=== PATIENT | male | born 1940 | race Caucasian/White ===

== ENCOUNTER → 2016-12-01 | Day surgery (SDC) | payer MEDICARE, OTHER ==
[~2016-12-01] MED LIST: ALTACE; ALTACE10 M2 PO; ALTACE10 MG PO; APRESOLINE PO; ASPIR-TRIN325 MG PO; ASPIRIN PO; ATIVAN PO; BAYER ASPIRIN325 M1 PO; BUPROPION XL300 MG PO; CARAFATE1 G PO; CARVEDILOL6.25 MG PO; COREG PO; COREG3.125 MG PO; COREG6.25 MG PO; CYMBALTA PO; EC-NAPROSYN500 MG PO; EFFIENT10 MG PO; ELIQUIS2.5 MG PO; FENOFIBRATE145 M1 PO; FISH OIL 1,0001 CAP PO; FISH OIL 1,2001 CAP; FISH OIL 1,2001 CAP PO; FISH OIL 1,2001 EAC2 PO; FISH OIL300 MG PO; FLOMAX0.4 M1 PO; GABAPENTIN600 MG PO; HYDRALAZINE HCL10 MG PO; HYDRALAZINE HCL25 MG PO; HYDRALAZINE HCL50 MG PO; IBUPROFEN200 M1; IMDUR-ER60 M1; IMDUR-ER60 M1 PO; IMDUR-ER60 M3 PO; IMDUR-ER60 MG PO; ISORDIL PO; ISOSORBIDE; ISOSORBIDE DINI30 MG PO; ISOSORBIDE MONO60 M1 PO; K-DUR20 ME1 PO; KCL PO; KLOR-CON PO; LASIX PO; LEVOXYL; LEVOXYL125 MCG PO; LEXAPRO PO; LIPITOR PO; LIPITOR40 MG; LIPITOR40 MG PO; NEURONTIN PO; NEURONTIN300 MG PO; NEURONTIN600 MG; NEURONTIN600 MG PO; NEXIUM PO; NITROGLYGERIN0.4 MG SL; NITROSTAT0.4 MG PO; NITROSTAT0.4 MG SL; NORVASC; NORVASC10 MG PO; OMEGA 3-6-9 11200 MG PO; OMEPRAZOLE40 M1 PO; ONGLYZA2.5 MG PO; PANTOPRAZOLE SO40 MG PO; PLAVIX PO; POTASSIUM CHLO20 ME1 PO; PRESTIQ PO; PRISTIQ50 MG PO; PROTONIX PO; PROZAC; RANEXA1000 MG PO; RANEXA500 MG PO; SEROQUEL; SEROQUEL PO; SYNTHROID PO; SYNTHROID125 PO; TRADJENTA5 MG PO; TRAMADOL HCL50 M2 PO; TRICOR PO; VIT E PO; VITAMIN E1000 UNI2 PO; WELLBUTRIN PO; XARELTO10 MG PO; ZANAFLEX PO; [UNRECOGNIZED DRUG - OTHER]; [UNRECOGNIZED DRUG - OTHER]
--- NOTE | ~2016-12-01 | OR ---
Unit #: [id number] #: [id number] Patient: DALIA VICTORIA [id number] [address] [address] [id number] O MR#: [id number] NAME: DALIA VICTORIA ROOM: Date of Procedure: 12/01/2016 Admission Date: 12/01/2016 Surgeon: Mike Rivera M.D. : 1940 Attending Physician: Mike Rivera M.D. OPERATIVE REPORT REFERRING PHYSICIAN Primary Care. SERVICES PROVIDED 1. Therapeutic cervical epidural steroid injection. 2. Fluoroscopy of the cervical spine. PREOPERATIVE DIAGNOSES 1. Degenerative disk disease, C5-C6. 2. Coronary artery disease, status post coronary artery bypass grafting, status post permanent pacemaker and automatic implantable cardioverter-defibrillator implant, currently off Xarelto. POSTOPERATIVE DIAGNOSES 1. Degenerative disk disease, C5-C6. 2. Coronary artery disease, status post coronary artery bypass grafting, status post permanent pacemaker and automatic implantable cardioverter-defibrillator implant, currently off Xarelto. PROCEDURE PERFORMED Caudal epidural steroid injection using fluoroscopy. FOLLOW-UP/REVIEW OF SYSTEMS/PHYSICAL EXAM Mr. Victoria has persistent cervical radiculopathy. He has had a good response to cervical epidural intervention with significant pain relief and improvement in his functionality and quality of life. He has no medical contraindications to the procedure that was performed as follows with his consent. INDICATIONS/COMMENTS AND CONSENTS/STATEMENT OF MEDICAL NECESSITY The patient's current medications, allergies and vital signs are documented in the nursing assessment. The risks and benefits of the intervention(s) were discussed with the patient in detail including but not limited to infection, bleeding, meningitis, steroid induced side-effects, nerve damage, paralysis, spinal headaches, neuritis, persistent or worsening pain. The patient wishes to proceed. A separate pain assessment is also in the chart. I have reviewed all of this and have reviewed this with the patient. A current History and Physical is also attached. DESCRIPTION OF PROCEDURE(S) 1. Monitoring and positioning: After appropriate discussions it was Unit #: [id number] #: [id number] Patient: DALIA VICTORIA decided to perform the procedure under local anesthesia without supplemental intravenous sedation. Vital signs were monitored in pre, intra and post-procedure phase. Monitoring included EKG, non-invasive BP, pulse oximetry, and temperature. These are documented and were stable. Appropriate supports and restraints were used. 2. Sedation: None. 3. Caudal epidural injection/fluoroscopy: The patient was placed in the sitting position. Positional supports were used. Fluoroscopy of the lumbar spine was performed using a caudal angle. Sterile prep and drape with carried out with ChloraPrep. The approximate location of the sacral hiatus was determined by palpating the sacral cornu. Local anesthesia was with infiltrated with 3 mL of preservative-free 1% lidocaine. Once anesthesia was established, a 22-gauge Tuohy epidural needle was inserted into the C5-C6 level through the sacrococcygeal ligament, epidurally, into the caudal spinal canal, using loss of resistance to saline technique, and with fluoroscopic guidance. Needle placement tested negative for subarachnoid and intravascular placement. An intra-operative epidurogram was now performed. Intra-operative epidurogram: 1 mL (s) of Isovue-M300 was injected through the epidural needle under continuous fluoroscopy. The dye was seen to spread to C5 in the cephalad direction, and to the C6 in the caudal direction. The spread of the dye was uniform and bilateral. 1 mL of preservative-free normal saline was used to irrigate the dye off the epidural space. There was no intravascular or intrathecal spread of contrast. A cervical epidural steroid injection was now performed using a total of 3 mL of solution containing 0.7% lidocaine and 80 mg of Depo-Medrol. Fluoroscopic imaging confirmed spread of medication. The needle was then removed intact. The skin was washed off. Prep solution and dressings were applied at the injection site. The patient tolerated the procedure well. The patient was then observed in the recovery area for 30 minutes. RESULTS The patient had a consistent block with the dose of local anesthetic used. Pain relief was satisfactory. There were no complications or side effects. DISCHARGE CONDITION 1. Patient was discharged in satisfactory condition accompanied by a family member. 2. Post-procedure instructions were given. PLAN(S) Patient was advised to return to the clinic in 2 months for re-assessment and office visit. I thank the patient's referring physician for the opportunity to participate in the care of this patient. Please do not hesitate to call for any questions regarding this patient's pain management. Dictated by... Ronnie Carrillo/luis f TD: 12/01/2016 09:55 Unit #: [id number] #: [id number] Patient: DALIA VICTORIA JOB #: [id number] OPERATIVE REPORT X Mike Rivera MD PROCEDURE OPERATIVE NOTE
== END | disposition home or self-care (01) ==
LOC: CCSC 08:38
PROVIDERS: Anesthesiology
PROC: 3E0R3BZ Introduction of Anesthetic Agent into Spinal Canal, Percutaneous Approach (ICD-10-PCS; 2016-12-01)
PROC: 3E0R33Z Introduction of Anti-inflammatory into Spinal Canal, Percutaneous Approach (ICD-10-PCS; principal; 2016-12-01 09:45)
DX: M50.322 Other cervical disc degeneration at C5-C6 level (principal); M47.812 Spondylosis without myelopathy or radiculopathy, cervical region; M12.88 Other specific arthropathies, not elsewhere classified, other specified site; I25.10 Atherosclerotic heart disease of native coronary artery without angina pectoris; Z95.1 Presence of aortocoronary bypass graft; Z95.810 Presence of automatic (implantable) cardiac defibrillator; K21.9 Gastro-esophageal reflux disease without esophagitis; E03.9 Hypothyroidism, unspecified; Z87.440 Personal history of urinary (tract) infections; Z98.890 Other specified postprocedural states; Z79.899 Other long term (current) drug therapy; Z88.5 Allergy status to narcotic agent; Z88.6 Allergy status to analgesic agent; Z88.8 Allergy status to other drugs, medicaments and biological substances
CPT/HCPCS: J1040; J2250; J3010

== ENCOUNTER 2017-03-19 13:19 | Observation (INO) | payer MEDICARE, OTHER ==
--- NOTE | ~2017-03-19 | EKG ---
PATIENT: DALIA GIBSON UNIT #: [id number] Ventricular Rate: 65 BPM Atrial Rate: 65 BPM P-R Interval: 296 ms QRS Duration: 194 ms Q-T Interval: 498 ms QTC Calculation(Bezet): 517 ms Calculated R [place]: -67 degrees Calculated T [place]: 93 degrees Diagnosis Line: Electronic ventricular pacemaker Diagnosis Line: Sinus rhythm with 1st degree A-V block Diagnosis Line: Left axis deviation Diagnosis Line: Right bundle branch block Diagnosis Line: Septal infarct , age undetermined Diagnosis Line: T wave abnormality, consider lateral ischemia Diagnosis Line: Abnormal ECG Diagnosis Line: When compared with ECG of 05-JUN-2016 15:36, Diagnosis Line: No significant change was found Diagnosis Line: Confirmed by FADI BRADY MD ([id number]) on 03/24/2017 Diagnosis Line: 2:35:47 PM INTERPRETING MD: CAITLYN ALARCON
--- NOTE | ~2017-03-19 | CR72 ---
[facility] Service of [facility] RADIOLOGY TEXT RESULTS PATIENT: DALIA GIBSON LOCATION: [place] [address] : [birth year] UNIT #: [id number] AGE: [address]: Forest Ferreira MD SEX: M ORDER DR: [id number] [place] [id number] [facility]. [place], [place] [address] [id number] MR#: [id number] Acc #: [id number] NAME: DALIA GIBSON : 1940 SEX: M STUDY DATE/TIME: 03/19/2017 14:02 UNIT: CEDOF ROOM: 08485 STUDY DESCRIPTION: CR Chest Single View Portable Attending Physician: Forest Ferreira M.D. Ordering Physician: Heike Mishra M.D. Primary Care Physician: Jin Bello M.D. MEDICAL IMAGING REPORT This report is preliminary unless electronic signature is present EXAM Portable chest HISTORY Chest pain for the past 2 days. TECHNIQUE Single view chest was obtained. COMPARISON STUDIES 02/25/2015. FINDINGS The heart and mediastinum are unchanged configuration. AICD leads appear satisfactory. Both lungs are clear with normal vascular markings and no pleural fluid is seen. No changes are noted since the previous exam. IMPRESSION No active disease. No new infiltrates are seen since the previous exam. Dictated by... Pj Anderson M.D. THIS IS AN ELECTRONICALLY VERIFIED REPORT Pj Anderson M.D. at 03/24/2017 4:52 PM RLF/pcl TD: 03/19/2017 20:44 JOB #: [id number] MEDICAL IMAGING REPORT [facility] RADIOLOGY TEXT RESULTS PATIENT: DALIA GIBSON LOCATION: [place] [address] : [birth year] UNIT #: [id number] AGE: [address]: Forest Ferreira MD SEX: M ORDER DR: Page 1 of 1 COPY
--- NOTE | ~2017-03-19 | DS ---
Unit #: [id number] #: [id number] Patient: DALIA GIBSON [id number] [place] [address] [facility]. [place], [place] [address] [id number] MR#: [id number] NAME: DALIA GIBSON ROOM: 572 Age: 76 Sex: M Admission Date: 03/19/2017 : 1940 Discharge Date: 03/20/2017 Attending Physician: Forest Ferreira M.D. Primary Care Physician: Jin Bello M.D. DISCHARGE SUMMARY SHORT-STAY SUMMARY HISTORY OF PRESENT ILLNESS The patient is a 76-year-old white male who follows with Dr. Wallace in the office for a history of coronary artery disease, status post CABG, followed by PCI and stent in 2009 to the circumflex artery. He also has a history of afib, permanent pacemaker and defibrillator, hypertension, hyperlipidemia, diabetes, hypothyroid, GERD, history of an RI, chronic kidney disease, obstructive sleep apnea, uses a CPAP, sleep paralysis, remote tobacco and alcohol abuse, ischemic cardiomyopathy with an EF of 45% to 50%. Patient presented to the [facility] ED on 03/19/17 at 1:00 p.m. with complaints of chest pain. In the ED his blood pressure was 150/88, pulse 67, temp 97.6, sats 98%. Patient states that he started with chest pain the day prior to admission. He states that it was most noticeable when he was putting TRACEE hose on a metal mittal that he had gotten, when he was pushing them on, as well as when he was stirring some birdfeed in his garage later the next day. Patient also noticed his chest pain when he would walk up the steps. He states that the pain was very sharp in nature to the left side of his chest and then there was a residual pressure that was left after the sharpness went away and that would last for one to two hours. He also noticed this pressure and sharp pain in his back. Patient does have chronic back pain where he does receive epidural injections and he is having trouble differentiating what could be back pain or some other type of pain. He also reported that he was short of breath and lightheaded but denies any nausea, fever, syncope or exertional chest pain. 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 Ferreira he states that he cannot walk very far due to limited by chest pain. Troponins in the ER were less than 0.05, then less than 0.05 then 0.03. EKG showed a paced rhythm at 63 beats per minute. There is a left axis deviation as well as a right bundle-branch block. Cardiology admitted the patient for further evaluation. Patient was given nitroglycerin paste b.i.d. as well as orthostatic blood pressures which were negative. PAST MEDICAL HISTORY 1. Coronary artery disease, status post CABG followed by PCI and stent 2009. Details unavailable. Unit #: [id number] #: [id number] Patient: DALIA GIBSON BROTHER 2. Afib. 3. Permanent pacemaker with defibrillator. 4. Hypertension. 5. Hyperlipidemia. 6. Diabetes. 7. Hypothyroid. 8. GERD. 9. History of RI. 10. Chronic kidney disease. He follows with Dr. Deras. 11. Obstructive sleep apnea. He uses CPAP. 12. Sleep paralysis. 13. Remote tobacco and alcohol abuse. 14. Ischemic cardiomyopathy with an EF of 45% to 50%. PAST SURGICAL HISTORY Past surgical history includes: 1. A pacemaker and defibrillator. 2. CABG in 1996 x4 vessel. 3. Stent placement in 2011. SOCIAL HISTORY Patient was a smoker but quit 40 years ago. He also was an alcohol abuser and quite drinking 35 years ago, denies any other drug abuse. FAMILY HISTORY No family history of heart disease that the patient is aware of. REVIEW OF SYSTEMS See HPI. PHYSICAL EXAMINATION GENERAL: This is a 76-year-old white male who is alert and oriented x3, in no apparent distress. VITAL SIGNS: Blood pressure is 127/59, respirations 16, pulse 62, temp 98.3. HEENT: Pupils are equal, round and reactive. Oral mucosa is moist. NECK: No JVD. No thyromegaly. No lymphadenopathy. No carotid bruits. HEART: S1, S2. No S3, S4. No clicks. No rubs. No murmurs. LUNGS: Lungs are clear. ABDOMEN: Soft. Bowel sounds positive. Nontender. Nondistended. EXTREMITIES: No swelling noted. NEUROLOGICAL: No neuro deficits noted. ALLERGIES Include morphine and ibuprofen as well as naproxen and erythromycin. HOME MEDICATIONS Include: 1. Coreg 6.25 mg p.o. b.i.d. 2. Gabapentin 600 mg p.o. q.h.s. 3. Lipitor 40 mg p.o. q.h.s. 4. Pristiq 50 mg p.o. q.h.s. 5. TriCor 48 mg p.o. q.h.s. 6. Synthroid 125 mg p.o. q.a.m. 7. Ranexa 1000 mg p.o. b.i.d. 8. Hydralazine 25 mg p.o. b.i.d. 9. Lasix 40 mg p.o. daily p.r.n. for swelling. 10. Lorazepam 1 mg p.o. daily p.r.n. for anxiety. 11. Nitrostat sublingual q.5 minutes p.r.n. for chest pain. Unit #: [id number] #: [id number] Patient: DALIA GIBSON BROTHER 12. Potassium chloride 20 mEq p.o. daily. 13. Isosorbide mononitrate 60 mg p.o. q.h.s. 14. Fish oil 1200 mg p.o. b.i.d. 15. Wellbutrin 300 mg p.o. q.h.s. 16. Onglyza 2.5 mg p.o. daily. DIAGNOSTIC STUDIES LABORATORY: Troponin less than 0.05, then less than 0.05, then 0.03. BNP of 155. White count 8.9, hemoglobin 12.4, hematocrit 31.4, platelets are 121. INR 1.1. Sodium 139, potassium 4.1, chloride 108, CO2 23, glucose 205, BUN 67, creatinine 1.6, GFR of 41. IMAGING: Chest x-ray shows no active disease or new infiltrates. IMPRESSION 1. Chest pain secondary to ischemic heart disease, stable angina. 2. Sharp chest pains, musculoskeletal. 3. Status post four vessel coronary artery bypass graft in 1996. 4. Status post automatic implantable cardioverter defibrillator in 2000. 5. Status post percutaneous coronary intervention and stents, details not known. PLAN Patient was offered could medically manage as RI has been ruled out or consider a cardiac cath. Patient wants to try medical management. Will double long-acting nitrates and he should follow up with Dr. Wallace in two weeks. It was recommended that if he continues with chest pains in two weeks or the pressure sensation that perhaps Dr. Wallace at that time could consider doing another heart cath on the patient. It was decided that stress test would not be informative in this patient as he has cardiomyopathy and would likely not be normal and not helpful. Patient states that his chest pain has not been any more frequent over the past six months than it was a year ago. He does not feel that he wants to have a cardiac cath done at this time. The patient is going to be discharged home. The only change in his medications is that his Imdur is going to be doubled to 120 mg p.o. q.h.s. Instructions were given to the patient who verbalized understanding. Dictated by... Edda Winslow APRN for Ronnie Buitrago/rin TD: 03/20/2017 16:25 JOB #: [id number] Unit #: [id number] #: [id number] Patient: DALIA GIBSON BROTHER DISCHARGE SUMMARY Page 1 of 1 X X DISCHARGE SUMMARY
--- NOTE | ~2017-03-19 | EKG ---
PATIENT: DALIA GIBSON UNIT #: [id number] Ventricular Rate: 63 BPM Atrial Rate: 63 BPM P-R Interval: 394 ms QRS Duration: 200 ms Q-T Interval: 520 ms QTC Calculation(Bezet): 532 ms P [place]: 22 degrees Calculated R [place]: -73 degrees Calculated T [place]: 95 degrees Diagnosis Line: Sinus rhythm with 1st degree A-V block Diagnosis Line: Left axis deviation Diagnosis Line: Right bundle branch block Diagnosis Line: T wave abnormality, consider lateral ischemia Diagnosis Line: Abnormal ECG Diagnosis Line: When compared with ECG of 19-MAR-2017 13:25, Diagnosis Line: (unconfirmed) Diagnosis Line: No significant change was found Diagnosis Line: Confirmed by DEDE OROZCO MD ([id number]) on Diagnosis Line: 03/22/2017 11:05:09 AM INTERPRETING MD: PAM ALARCON
[~2017-03-19 13:19] MED LIST changes: -FISH OIL300 MG PO; -GABAPENTIN600 MG PO; -HYDRALAZINE HCL25 MG PO; -ISOSORBIDE MONO60 M1 PO; -NITROSTAT0.4 MG PO; -POTASSIUM CHLO20 ME1 PO
[2017-03-19 14:22] LABS: POC - CKMB 1.2 ng/mL (0.0-7.9); POC - TROPONIN <0.05 ng/mL (<=0.05)
[2017-03-19 14:34] LABS: BASOPHIL% 0.1 % (0-2.5); HEMATOCRIT 37.4 % (38.0-50.0); HEMOGLOBIN 12.4 gm/dL (13.0-16.0); LYMPHOCYTE# 0.6 X10e3 (1.0-3.5); LYMPHOCYTE% 6.8 % (17.0-45.0); MEAN CELL VOLUME 98.7 FL (83-96); MEAN CORPUSCULAR HEMOGLOBIN 32.6 PG (28-34); MEAN PLATELET VOLUME 9.3 FL (6.5-11.5); MONOCYTE# 0.4 X10e3 (0-1.0); MONOCYTE% 4.7 % (3.0-12.0); NEUTROPHIL# 7.9 X10e3 (1.5-7.1); NEUTROPHIL% 88.4 % (40-75); PLATELET COUNT 121 X10e3 (140-420); RED BLOOD COUNT 3.79 X10e (3.90-5.60); RED CELL DISTRIBUTION WIDTH 14.4 % (11.0-15.5); WHITE BLOOD COUNT 8.9 X10e3 (4.0-10.5)
[2017-03-19 14:36] LABS: DIFF IND NO
[2017-03-19 14:52] LABS: INR 1.1; PARTIAL THROMBOPLASTIN TIME 23.6 SECONDS (23.5-31.3); PROTHROMBIN TIME (PATIENT) 11.6 SECONDS (10.0-11.7)
[2017-03-19 15:09] LABS: ALBUMIN SERUM 3.8 g/dL (3.5-5.0); BILIRUBIN, DIRECT 0.1 mg/dL (0.0-0.2); BILIRUBIN,INDIRECT 0.8 mg/dL (0.0-0.9); BILIRUBIN,TOTAL 0.9 mg/dL (0.2-2.0); BUN/CREATININE RATIO 41.87; CALCIUM SERUM 9.1 mg/dL (8.4-10.2); CREATININE SERUM 1.6 mg/dL (0.6-1.4); POTASSIUM 4.1 mmol/L (3.5-5.1); PROTEIN TOTAL SERUM 6.3 g/dL (6.0-8.3)
[2017-03-19] MEDS ORDERED: LIPITOR40 MG PO (16:59)
[2017-03-19] MEDS ORDERED: COREG6.25 MG PO (16:59)
[2017-03-19] MEDS ORDERED: GABAPENTIN600 MG PO (16:59)
[2017-03-19] MEDS ORDERED: PRISTIQ50 MG PO (16:59)
[2017-03-19] MEDS ORDERED: SYNTHROID PO (17:00)
[2017-03-19] MEDS ORDERED: TRICOR PO (17:00)
[2017-03-19] MEDS ORDERED: RANEXA1000 MG PO (17:00)
[2017-03-19] MEDS ORDERED: HYDRALAZINE HCL25 MG PO (17:00)
[2017-03-19] MEDS ORDERED: NITROSTAT0.4 MG PO (17:01)
[2017-03-19] MEDS ORDERED: LASIX PO (17:01)
[2017-03-19] MEDS ORDERED: ATIVAN PO (17:01)
[2017-03-19] MEDS ORDERED: BUPROPION XL300 MG PO (17:02)
[2017-03-19] MEDS ORDERED: FISH OIL300 MG PO (17:02)
[2017-03-19] MEDS ORDERED: ISOSORBIDE MONO60 M1 PO (17:02)
[2017-03-19] MEDS ORDERED: POTASSIUM CHLO20 ME1 PO (17:02)
[2017-03-19] MEDS ORDERED: ONGLYZA2.5 MG PO (17:03)
[2017-03-19 17:16] LABS: POC - CKMB 1.4 ng/mL (0.0-7.9); POC - TROPONIN <0.05 ng/mL (<=0.05)
[2017-03-20 07:17] LABS: CK TOTAL 43 IU/L (36-174)
== END 2017-03-20 13:56 | disposition home or self-care (01) ==
LOC: CED 13:19 → CEDOF 17:00 → CED 17:25 → CEDOF 20:47 → C5C 20:47
PROVIDERS: Emergency Medicine; Internal Medicine
DX: I25.118 Atherosclerotic heart disease of native coronary artery with other forms of angina pectoris (principal); I12.9 Hypertensive chronic kidney disease with stage 1 through stage 4 chronic kidney disease, or unspecified chronic kidney disease; N18.9 Chronic kidney disease, unspecified; Z95.5 Presence of coronary angioplasty implant and graft; Z87.891 Personal history of nicotine dependence; Z95.810 Presence of automatic (implantable) cardiac defibrillator; R07.89 Other chest pain; E78.5 Hyperlipidemia, unspecified; E11.9 Type 2 diabetes mellitus without complications; Z79.84 Long term (current) use of oral hypoglycemic drugs; Z79.899 Other long term (current) drug therapy; G47.33 Obstructive sleep apnea (adult) (pediatric); K21.9 Gastro-esophageal reflux disease without esophagitis; E03.9 Hypothyroidism, unspecified; I25.2 Old myocardial infarction
CPT/HCPCS: 36415; 71010; 80048; 80076; 82550; 82553; 83880; 84484; 85025; 85610; 85730; 93005; 94760; 96365; 96366; 99285; G0378